=== PATIENT | male | born 1970 | race Two or more races ===

== ENCOUNTER 2021-11-19 02:58 | Emergency (ER) | payer OTHER ==
[~2021-11-19] VITALS: Ht 175.3 cm; Wt 87.1 kg
[2021-11-19] MEDS ORDERED: HYDROcodone-ACET 5/325MG TAB PO ONE (03:45)
[2021-11-19] MEDS ORDERED: ONDANSETRON HCL 4 MG/2 ML VIAL IV ONE ×2 (06:15→09:45)
[2021-11-19] MEDS ORDERED: MORPHINE SULFATE 4 MG/ML SYR/VIAL IV ONE ×2 (06:15→09:45)
[2021-11-19] MEDS ORDERED: MORPHINE SULFATE 4 MG/ML SYR/VIAL ONE (09:36)
[2021-11-19] MEDS ORDERED: ONDANSETRON HCL 4 MG/2 ML VIAL ONE (09:43)
[2021-11-19 09:48] VITALS: BP 110/74
== END 2021-11-19 10:01 | disposition short-term general hospital (02) ==
LOC: EDBD 02:58 → ER 03:00
DX: S32.029A Unspecified fracture of second lumbar vertebra, initial encounter for closed fracture (principal); V43.62XA Car passenger injured in collision with other type car in traffic accident, initial encounter; Y93.89 Activity, other specified; Y92.488 Other paved roadways as the place of occurrence of the external cause; Y99.8 Other external cause status
CPT/HCPCS: 72131; 96374; 96375; 96376; 99285; J2270; J2405